=== PATIENT | male | born 1975 | race Caucasian/White ===

== ENCOUNTER 2017-09-20 18:54 | Emergency (ER) | payer SELFPAY ==
[2017-09-20 20:00] LABS: BASOPHIL % 0.5 % (0-2); PLATELET COUNT 162 x10^3mcL (130-400); RED CELL DISTRIBUTION WIDTH 12.8 % (11.5-14.5)
[2017-09-20 20:07] LABS: AMYLASE 33 U/L (25-115); LIPASE 144 IU/L (73-393)
[2017-09-20 20:10] LABS: CALCIUM 8.5 mg/dL (8.5-10.1); CHLORIDE SERUM 104 mmol/L (98-107); CREATININE SERUM 0.9 mg/dL (0.7-1.3); GFR1 > 60 mL/min; GLUCOSE SERUM 141 mg/dL (74-106); POTASSIUM SERUM 3.8 mmol/L (3.5-5.1); SODIUM SERUM 140 mmol/L (136-145)
[2017-09-20 20:14] LABS: ALBUMIN 3.3 g/dL (3.4-5.0); ALKALINE PHOSPHATASE 107 U/L (46-116); ALT/SGPT 45 U/L (16-63); AST/SGOT 23 U/L (15-37); BILIRUBIN TOTAL 0.32 mg/dL (0.20-1.00); TOTAL PROTEIN, SERUM 6.9 g/dL (6.4-8.2)
[2017-09-20 21:07] LABS: AMPHETAMINE QUAL UR NONE DETECTED (NEG <=1000)
[2017-09-20 21:58] VITALS: BP 115/74
== END 2017-09-20 21:58 | disposition home or self-care (01) ==
LOC: ED 18:54
PROVIDERS: Emergency Medicine
DX: K29.00 Acute gastritis without bleeding (principal); E11.9 Type 2 diabetes mellitus without complications; F17.210 Nicotine dependence, cigarettes, uncomplicated
CPT/HCPCS: 83880; 99406; J3010; J7030; Q0092